=== PATIENT | male | born 1960 | race Caucasian/White ===

== ENCOUNTER 2016-11-11 15:08 | Emergency (ER) | payer BC, OTHER ==
[2016-11-11 15:09] VITALS: BP 135/85; PULSE 75; RESP 14; TEMP 98.2; O2SAT 94
[2016-11-11] MEDS ORDERED: SODIUM CHLORIDE 0.9% FLUSH 5 ML FLUSH IVF PRN (17:15)
[2016-11-11] MEDS ORDERED: KETOROLAC TROMETHAMINE 30 MG/ML (IVP) VIAL IVP ONE (17:15)
[2016-11-11] MEDS ORDERED: PANTOPRAZOLE SODIUM 40 MG VIAL IVP ONE (17:15)
[2016-11-11] MEDS ORDERED: SODIUM CHLOR 0.9% 1000 ML INJ 1,000 ML IV SCH (17:15)
[2016-11-11 17:20] VITALS: BP 145/100; PULSE 96; RESP 18; O2SAT 98
--- NOTE | 2016-11-11 17:23 | PD ---
HPI Chief Complaint: Abdominal Pain Time Seen by Provider: 17:04 Travel History International Travel<30 days: No Contact w/Intl Traveler<30days: No Traveled to known affect area: No History of Present Illness HPI 56yo M with PMH of HTN and nephrolithiasis presents to the ED with c/o lower abdominal pain since 1pm today. Stats pain is intermittent, sharp and radiates from left to right. Denies any fever, n/v, chest pain, sob, diarrhea, blood in stool, testicular pain, penile discharge. Pt had colonoscopy in 2013 that was negative. Denies any prior similar pain. Did not take any medication for pain. PFSH Social History Tobacco Use: No Allergies-Medications (Allergen,Severity, Reaction): Coded Allergies: No Known Allergies (Unverified , 11/11/16) Reported Meds & Prescriptions Reported Meds & Active Scripts Active Omeprazole 40 Mg Cap 40 Mg PO DAILY 10 Days Reported Ziac (Bisoprolol-Hydrochlorothiazide) 5-6.25 Mg Tab 1 Tab PO DAILY Zantac (Ranitidine HCl) 150 Mg Tab 150 Mg PO DAILY Review of Systems Except as stated in HPI: all other systems reviewed are Neg Physical Exam Narrative GENERAL: 56yo M not in distress. SKIN: Warm and dry. HEAD: Atraumatic. Normocephalic. NECK: Trachea midline. No JVD. CARDIOVASCULAR: Regular rate and rhythm. No murmur appreciated. RESPIRATORY: No accessory muscle use. Clear to auscultation. Breath sounds equal bilaterally. GASTROINTESTINAL: Abdomen soft, softly distended. +TTP RLQ, RUQ, Epigastric region. No rebound tenderness or guarding. : NO ttp bilateral testicles. No penile discharge. No inguinal hernia palpated. BACK: No CVA tenderness bilaterally. MUSCULOSKELETAL: No obvious deformities. No clubbing. No cyanosis. No edema. NEUROLOGICAL: Awake and alert. No obvious cranial nerve deficits. Motor grossly within normal limits. Normal speech. PSYCHIATRIC: Appropriate mood and affect; insight and judgment normal. Data Data Last Documented VS Vital Signs Date Time Temp Pulse Resp B/P Pulse Ox O2 Delivery O2 Flow Rate FiO2 11/11/16 18:30 51 18 130/80 98 Room Air 11/11/16 15:09 98.2 Orders Complete Blood Count With Diff (11/11/16 17:15) Lipase (11/11/16 17:15) Prothrombin Time / Inr (Pt) (11/11/16 17:15) Act Partial Throm Time (Ptt) (11/11/16 17:15) Urinalysis - C+S If Indicated (11/11/16 17:15) Iv Access Insert/Monitor (11/11/16 17:15) Ecg Monitoring (11/11/16 17:15) Oximetry (11/11/16 17:15) Pantoprazole Inj (Protonix Inj) (11/11/16 17:15) Sodium Chlor 0.9% 1000 Ml Inj (Ns 1000 M (11/11/16 17:15) Sodium Chloride 0.9% Flush (Ns Flush) (11/11/16 17:15) Ketorolac Inj (Toradol Inj) (11/11/16 17:15) Basic Metabolic Panel (Bmp) (11/11/16 17:23) Hepatic Functional Panel (11/11/16 17:23) Electrocardiogram (11/11/16 ) Labs Laboratory Tests Test 11/11/16 11/11/16 17:30 18:00 White Blood Count 13.6 TH/MM3 Red Blood Count 5.48 MIL/MM3 Hemoglobin 16.6 GM/DL Hematocrit 48.1 % Mean Corpuscular Volume 87.8 FL Mean Corpuscular Hemoglobin 30.3 PG Mean Corpuscular Hemoglobin 34.5 % Concent Red Cell Distribution Width 13.0 % Platelet Count 298 TH/MM3 Mean Platelet Volume 7.4 FL Neutrophils (%) (Auto) 65.6 % Lymphocytes (%) (Auto) 23.8 % Monocytes (%) (Auto) 5.5 % Eosinophils (%) (Auto) 4.4 % Basophils (%) (Auto) 0.7 % Neutrophils # (Auto) 8.9 TH/MM3 Lymphocytes # (Auto) 3.2 TH/MM3 Monocytes # (Auto) 0.7 TH/MM3 Eosinophils # (Auto) 0.6 TH/MM3 Basophils # (Auto) 0.1 TH/MM3 CBC Comment DIFF FINAL Differential Comment Prothrombin Time 11.3 SEC Prothromb Time International 1.0 RATIO Ratio Activated Partial 25.9 SEC Thromboplast Time Sodium Level 139 MEQ/L Potassium Level 3.9 MEQ/L Chloride Level 104 MEQ/L Carbon Dioxide Level 25.3 MEQ/L Anion Gap 10 MEQ/L Blood Urea Nitrogen 20 MG/DL Creatinine 1.04 MG/DL Estimat Glomerular Filtration 74 ML/MIN Rate Random Glucose 105 MG/DL Calcium Level 9.2 MG/DL Total Bilirubin 0.4 MG/DL Direct Bilirubin 0.1 MG/DL Indirect Bilirubin 0.3 MG/DL Aspartate Amino Transf 20 U/L (AST/SGOT) Alanine Aminotransferase 35 U/L (ALT/SGPT) Alkaline Phosphatase 104 U/L Total Protein 8.7 GM/DL Albumin 4.0 GM/DL Lipase 260 U/L Urine Color YELLOW Urine Turbidity CLEAR Urine pH 5.0 Urine Specific [place] 1.028 Urine Protein NEG mg/dL Urine Glucose (UA) NEG mg/dL Urine Ketones NEG mg/dL Urine Occult Blood NEG Urine Nitrite NEG Urine Bilirubin NEG Urine Urobilinogen LESS THAN 2.0 MG/DL Urine Leukocyte Esterase NEG Urine WBC 1 /hpf Urine Calcium Oxalate Crystals OCC /hpf Urine Mucus FEW /lpf Microscopic Urinalysis Comment CULT NOT INDICATED MDM Medical Decision Making Medical Screen Exam Complete: Yes Emergency Medical Condition: Yes Interpretation(s) EKG: Sinus bradycardia at 58bpm. LAD. Q wave III, aVF. Differential Diagnosis Appendicitis vs. colitis vs. diverticulitis vs. cholecystitis vs. pancreatitis vs. nephrolithiasis Narrative Course 56yo M with lower abdominal pain since 1pm today. Labs reviewed, mild leukocytosis at 13.6. Lipase is normal at 260. LFTs normal. UA with occasional calcium oxalate crystal. No blood or leukocyte. Pt given pantoprazole and toradol for pain. Pt reevaluated at bedside and states abdominal pain has resolved after medication. Pt has no RLQ pain on exam. Pt is not nauseous and wants to go home. Return precautions given. Diagnosis Primary Impression: Abdominal pain Qualified Code: R10.84 - Generalized abdominal pain Patient Instructions: General Instructions Departure Forms: Tests/Procedures Additional Instructions: Please follow up with your PMD in 3-7 days. Return to the ED if symptoms worsen. Med/Other Pt SpecificInfo: Prescription(s) given Scripts Omeprazole 40 Mg Cap40 Mg PO DAILY 10 Days Ref 0 Prov:Marija Higgins 11/11/16 Disposition: 01 DISCHARGE HOME Condition: Stable Vandana Higginsozzy OSORIO Nov 11, 2016 17:23
[2016-11-11] MEDS ORDERED: ZANT150T2 PO (17:28)
[2016-11-11] MEDS ORDERED: ZIAC5TAB PO (17:28)
[2016-11-11 17:48] LABS: AUTOMATED NEUTROPHIL # 8.9 TH/MM3 (1.8-7.7); BASOPHIL # 0.1 TH/MM3 (0-0.2); BASOPHIL % 0.7 % (0.0-2.0); EOSINOPHIL # 0.6 TH/MM3 (0-0.4); EOSINOPHIL % 4.4 % (0.0-4.0); HEMATOCRIT 48.1 % (39.0-51.0); HEMO FLAGS DIFF FINAL; LYMPH % 23.8 % (9.0-44.0); LYMPHOCYTE # 3.2 TH/MM3 (1.0-4.8); MEAN CELL VOLUME 87.8 FL (80.0-100.0); MEAN CORPUSCULAR HEMOGLOBIN 30.3 PG (27.0-34.0); MEAN CORPUSCULAR HGB CONC 34.5 % (32.0-36.0); MONO % 5.5 % (0.0-8.0); NEUT % 65.6 % (16.0-70.0); PLATELET COUNT 298 TH/MM3 (150-450); RED BLOOD COUNT 5.48 MIL/MM3 (4.50-5.90); WHITE BLOOD COUNT 13.6 TH/MM3 (4.0-11.0)
[2016-11-11 18:04] LABS: APTT (PATIENT) 25.9 SEC (24.3-30.1); PROTHROMBIN TIME - PATIENT 11.3 SEC (9.8-11.6)
[2016-11-11 18:30] VITALS: BP 130/80; PULSE 51; RESP 18; O2SAT 98
[2016-11-11 18:43] LABS: BLOOD, URINE NEG (NEG); CALCIUM OXALATE CRYSTALS,URINE OCC /hpf; COMMENT (UR) CULT NOT INDICATED; CULTURE IF INDICATED CULT NOT INDICATED; GLUCOSE,URINE NEG (NEG); KETONE, URINE NEG (NEG); MUCUS URINE FEW /lpf (OCC); NITRITE,URINE NEG (NEG); URINE COLOR YELLOW (YELLW/STRAW)
[2016-11-11 18:59] LABS: BICARBONATE 25.3 MEQ/L (21.0-32.0); POTASSIUM 3.9 MEQ/L (3.5-5.1)
[2016-11-11 19:02] LABS: INDIRECT BILIRUBIN 0.3 MG/DL (0.0-0.8); TOTAL BILIRUBIN ADULT 0.4 MG/DL (0.2-1.0)
[2016-11-11] MEDS ORDERED: OMEP40CA2 PO (19:15)
--- NOTE | 2016-11-12 22:58 | EKG ---
Date Performed: 11/11/2016 Time Performed: 19:18:41 PTAGE: 56 years EKG: SINUS BRADYCARDIA NONSPECIFIC ST & T-WAVE ABNORMALITY BORDERLINE ECG NO PREVIOUS TRACING DOCTOR: Love Norman Interpretating Date/Time 11/12/2016 22:56:20
== END 2016-11-11 20:04 | disposition home or self-care (01) ==
LOC: NEPA 15:08
DX: R10.84 Generalized abdominal pain (principal); R00.1 Bradycardia, unspecified
CPT/HCPCS: 80048; 80076; 81001; 83690; 85025; 85610; 85730; 93005; 96361; 96374; 96375; 99284; C9113; J1885; J7030